=== PATIENT | female | born 1990 | race Caucasian/White ===

== ENCOUNTER 2016-10-19 20:51 | Emergency (ER) | payer OTHER ==
[2016-10-19 21:03] VITALS: BP 115/83; BMI 41.5
[2016-10-19] MEDS ORDERED: ZOFRAN TAB 4 MG PO STA (21:17)
--- NOTE | 2016-10-19 21:22 | DR.GENAD ---
HPI - PCP Primary Care Physician: TREVOR - Complaint/Symptoms Chief Complaint Doctors Comments: Patient states she is 12 weeks gestation and she has been having vomiting,nausea, with right sided pain that radiates to the upper back for the past 2-3 hours. states the pain is 10 of 10. She denies vaginal bleeding or spotting. She denies dysuria, hematuria, ana, cold, cough, fever or chills. States she is a patient of Dr. Dang. States this is her second and the first one resulted in a miscarriage at 28 weeks. she denies tobacco or alcohol usage. states she has been taking the phenergan but still nauseated when she tries to eat. She denies diarrhea. Chief Complaint:: PT STATES SHE HAS BEEN HAVING ABD PAIN THAT RADIATES TO HER BACK FOR ONE HOUR. PT DENIES ANY BLEEDING. - Nurses notes reviewed Nurses Notes Review: Yes - Source History Provided: Patient - Mode of Arrival Mode of Arrival: Stretcher - Timing Onset of Chief Complaint: 10/19/16 Came on: Suddenly - Duration Duration: Intermittent How lon Duration: Hours - Location Location: right CVA and back pain - Severity Severity: Moderate - Modifying Factors Worsens:: nothing Improves:: nothing PMH - PMH Past Medical History: Yes Past Medical History: Asthma Past Surgical History: Yes Surgical History: - Family History History of Family Medical Conditions: Yes Family Medical History: Diabetes Mellitus, [place], Hypertension - Social History Alcohol Use: None Do you use any recreational Drugs:: No Lives With: Family Lives Where: Home - infectious screening In the last 2 months have you had wt loss of >10#?: NO Have you had fever, night sweats or hemotysis?: No Have you traveled outside the country in the last 6 months?: No Isolation: Standard ROS - Review of Systems Constitutional: No Symptoms Reported, Loss of Appetite Eyes: No Symptoms Reported ENTM: No Symptoms Reported Respiratoy: No Symptoms Reported. negative: See HPI, Productive Cough, Non- Productive Cough, Moist Cough, Dry Cough, Hacking Cough, Barking Cough, Brassy Cough, Orthopnea, Short of Breath, Stridor, Wheezing, Hemoptysis, Other Cardiovascular: No Symptoms Reported. negative: See HPI, Chest Pain, Edema, Palpitations, Syncope, Cyanosis, Skin Mottling, Other Gastrointestinal/Abdominal: No Symptoms Reported, Abdominal Pain, Nausea, Vomiting. negative: See HPI, Constipation, Diarrhea, Food Intolerance, Other Genitourinary: No Symptoms Reported. negative: See HPI, Discharge, Dysuria, Frequency, Hematuria, Pain, Bleeding, Other Neurological: No Symptoms Reported Musculoskeletal: No Symptoms Reported Integumentary: No Symptoms Reported Hematologic/Lymphatic: No Symptoms Reported Endocrine: No Symptoms Reported Psychiatric: No Symptoms Reported PE - Vital Signs Vitals: Temperature 98.3 F Pulse Rate 85 Respiratory Rate 20 Blood Pressure [Left Arm] 138/88 Blood Pressure 115/83 O2 Sat by Pulse Oximetry 100 - General Limitations: No Limitations General Appearance: Alert, In No Apparent Distress - Head Head Exam: Normal Inspection, Atraumatic, Normocephalic - Eyes Eye exam: Normal Appearance, PERRL, EOMI. negative: Scleral Icterus, Conjunctival Injection, Nystagmus, Miosis, Mydrasis, Periorbital Swelling, Periorbital Tenderness, Other - ENT ENT Exam: Normal Exam, Normal Oropharynx, Normal External Ear Exam, Mucous Membranes Moist, TM's Normal Bilaterally External Ear Exam: Normal External Inspection TM/Canal Exam: Bilateral Normal Nose Exam: Normal Nose Exam Mouth Exam: Normal Inspection Throat Exam: Normal Inspection - Neck Neck Exam: Normal Inspection, Full ROM, Trachea Midline. negative: Tenderness, Meningismus, Lymphadenopathy, Thyromegaly, Other - Chest Chest Inspection: Normal Inspection, Symmetric Chest Wall Rise - Respiratory Respiratory Exam: Normal Lung Sounds Bilat Respiratory Exam: Bilateral Clear to Auscultation - Cardiovascular Cardiovascular Exam: Regular Rate, Normal Rhythm, Normal Heart Sounds - Abdominal Exam Abdominal Exam: Normal Inspection, Normal Bowel Sounds, Soft Abdominal Tenderness: negative: RUQ, RLQ, LUQ, LLQ, Epigastrium, Suprapubic, Diffuse, Mild, Moderate, Severe, Other - Extremities Extremities Exam: Normal Inspection, Full ROM, Normal Capillary Refill. negative: Tenderness, Edema, Joint Swelling, Calf Tenderness, Other - Back Back Exam: Normal Inspection, Full ROM. negative: Tenderness, (R) CVA Tenderness, (L) CVA Tenderness, Muscle Spasm, Paraspinal Tenderness, Vertebral Tenderness, Rashes, (R) Sciatic Notch Tenderness, (L) Sciatic Notch Tendern, (R ) Straight Leg Raise, (L) Straight Leg Raise, Other - Neurologic Neurological Exam: Alert, Oriented X3, CN II-XII Intact, Reflexes Normal. negative: Normal Gait (gait not tested) ROR - Labs Reviewed Laboratory Results Reviewed?: Yes (all lab results reviewed and discussed with patient) Result Diagrams: 10/19/16 21:25 10/19/16 21: Laboratory: WBC 12.0 X10^3/uL (3.6-10.0) H 10/19/16 21: RBC 4.96 X10^6/uL (3.5-5.4) 10/19/16 21: Hgb 12.7 g/dL (12.0-16.0) 10/19/16: Hct 38.4 % (36.0-47.0) 10/19/16: MCV 77.4 fL (80.0-100.0) L 10/19/16: MCH 25.6 pg (27.0-34.0) L 10/19/16: MCHC 33.0 g/dL (33.0-35.0) 10/19/16: RDW 16.2 % (11.6-16.5) 10/19/16: Plt Count 273 X10^3/uL (150.0-450.0) 10/19/16: Plt Count Comment Adequate (ADEQUATE) 10/19/16: MPV 9.2 fL (7.4-11.0) 10/19/16 21:25 Neut % 75.9 % (42.0-75.0) H 10/19/16 21: Lymph % 16.5 % (21.0-51.0) L 10/19/16 21: [place] % 5.3 % (0.0-13.0) 10/19/16 21:25 Eos % 1.9 % (0.9-2.9) 10/19/16: Baso % 0.4 % (0.2-1.0) 10/19/16: Neut # 9.1 x10^3/uL (2.2-4.8) H 10/19/16 21:25 Lymph # 2.0 X10^3/uL (1.3-2.9) 10/19/16 21:25 [place] # 0.6 x10^3/uL (0.3-0.8) 10/19/16 21:25 Eos # 0.2 x10^3/uL (0.0-0.2) 10/19/16 21:25 Baso # 0.0 X10^3/uL (0.0-0.1) 10/19/16 21:25 Absolute Nucleated RBC 0.0 /100WBC 10/19/16 21:25 Plt Morphology Comment Normal (NORMAL) 10/19/16 21:25 RBC Morphology Normal (NORMAL) 10/19/16 21:25 Sodium 137 mmol/L (136-145) 10/19/16 21:25 Corrected Sodium TNP 10/19/16 21:25 Potassium 3.8 mmol/L (3.5-5.1) 10/19/16 21:25 Chloride 103 mmol/L (98-107) 10/19/16 21:25 Carbon Dioxide 24.1 mmol/L (21-32) 10/19/16 21:25 BUN 12 mg/dL (7-18) 10/19/16 21:25 Creatinine 0.90 mg/dL (0.55-1.02) 10/19/16 21:25 Est GFR (MDRD) Af Amer > 60 (>60) 10/19/16 21:25 Est GFR (MDRD) Non-Af > 60 (>60) 10/19/16 21:25 Glucose 92 mg/dL (65-99) 10/19/16 21:25 Calcium 9.0 mg/dL (8.5-10.1) 10/19/16 21:25 Corrected Calcium 9.6 mg/dL (8.5-10.1) 10/19/16 21:25 Total Bilirubin 0.30 mg/dL (0.2-1.0) 10/19/16 21:25 AST 21 Units/L (15-37) 10/19/16 21:25 ALT 33 Units/L (12-78) 10/19/16 21:25 Alkaline Phosphatase 92 Units/L (46-116) 10/19/16 21:25 Total Protein 7.5 g/dL (6.4-8.2) 10/19/16 21:25 Albumin 3.3 g/dL (3.4-5.0) L 10/19/16 21:25 Globulin 4.2 g/dL (2.5-4.5) 10/19/16 21:25 Albumin/Globulin Ratio 0.8 Ratio (1.1-2.1) L 10/19/16 21:25 HCG, Quant [id number] mIU/mL (0-6) H 10/19/16 21:25 - Other Results Comments: Patient unable to collect urine. States she missed the cup and is not able to go to urine again and wants to followup with her local doctor because she states she feels good presently and is not having any problems or pain. - Diagnosis Discharge Problem: Abdominal pain during Qualifiers: Weeks of gestation: 12 weeks Qualified Code(s): Z3A.12 - 12 weeks gestation of - Discharge Plan Disposition: 01 HOME, SELF-CARE Condition: Stable - Follow ups/Referrals Follow ups/Referrals: BIJAN MURRAY [Primary Care Provider] - 3 days - Instructions Instructions: , First Trimester of , [id number], Abdominal Pain During
[2016-10-19 21:42] LABS: BASOPHILS % (AUTO) 0.4 % (0.2-1.0); EOSINOPHILS # (AUTO) 0.2 x10^3/uL (0.0-0.2); EOSINOPHILS % (AUTO) 1.9 % (0.9-2.9); HEMATOCRIT 38.4 % (36.0-47.0); HEMOGLOBIN 12.7 g/dL (12.0-16.0); LYMPHOCYTES % (AUTO) 16.5 % (21.0-51.0); MEAN CORPUSCULAR HEMOGLOBIN 25.6 pg (27.0-34.0); MEAN CORPUSCULAR VOLUME 77.4 fL (80.0-100.0); MEAN PLATELET VOLUME 9.2 fL (7.4-11.0); MONOCYTES # (AUTO) 0.6 x10^3/uL (0.3-0.8); MONOCYTES % (AUTO) 5.3 % (0.0-13.0); NEUTROPHILS # (AUTO) 9.1 x10^3/uL (2.2-4.8); NEUTROPHILS % (AUTO) 75.9 % (42.0-75.0); PLATELET COUNT 273 X10^3/uL (150.0-450.0); RED BLOOD COUNT 4.96 X10^6/uL (3.5-5.4); RED CELL DISTRIBUTION WIDTH 16.2 % (11.6-16.5)
[2016-10-19 21:44] LABS: ALANINE AMINOTRANSFERASE 33 Units/L (12-78); ALBUMIN 3.3 g/dL (3.4-5.0); ALKALINE PHOSPHATASE 92 Units/L (46-116); ASPARTATE AMINO TRANSFERASE 21 Units/L (15-37); BLOOD UREA NITROGEN 12 mg/dL (7-18); CARBON DIOXIDE 24.1 mmol/L (21-32); CHLORIDE 103 mmol/L (98-107); COR CA(FOR HYPOALB) 9.6 mg/dL (8.5-10.1); GLUCOSE 92 mg/dL (65-99); SODIUM 137 mmol/L (136-145); TOTAL PROTEIN 7.5 g/dL (6.4-8.2); eGFR BLACK RACES > 60 (>60); eGFR NON BLACK RACES > 60 (>60)
[2016-10-19 22:02] LABS: PLATELET MORPHOLOGY COMMENT NORMAL (NORMAL)
[2016-10-19 22:14] LABS: HCG,QUANTITATIVE 176129 mIU/mL (0-6)
[2016-10-19] MEDS ORDERED: ZOFRAN TAB 4 MG ONE (22:59)
== END 2016-10-19 23:26 | disposition home or self-care (01) ==
LOC: ER 20:51
DX: R10.84 Generalized abdominal pain (principal); Z3A.12 12 weeks gestation of pregnancy
CPT/HCPCS: 36415; 80053; 84702; 85025; 99282; 99283; 99284; S0181

== ENCOUNTER 2016-11-22 11:41 | Emergency (ER) | payer OTHER ==
[2016-11-22 11:46] VITALS: BP 144/80; BMI 53.4
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
[2016-11-22] MEDS ORDERED: TYLENOL 500 MG TAB EXTRA STRENGTH ONE (12:39)
[2016-11-22] MEDS ORDERED: TYLENOL 500 MG TAB EXTRA STRENGTH PO PRN (12:40)
[2016-11-22 13:26] LABS: BILIRUBIN,URINE NEGATIVE (NEGATIVE); BLOOD/HEMOGLOBIN,URINE 1+ (NEGATIVE); GLUCOSE, URINE NEGATIVE (NEGATIVE); KETONES,URINE 1+ (NEGATIVE); LEUKOCYTE ESTERASE ,URINE 1+ (NEGATIVE); NITRITES,URINE NEGATIVE (NEGATIVE); PROTEIN,URINE 2+ (NEGATIVE); UROBILINOGEN,URINE 1+ (NORMAL)
[2016-11-22 13:35] LABS: APPEARANCE,URINE HAZY (CLEAR); BACTERIA,URINE 3+ /HPF (NEGATIVE); COLOR,URINE YELLOW (YELLOW); RBC,URINE 0-2 /HPF (NEGATIVE); SQUAMOUS EPITHELIAL CELL,UR FEW /HPF (NEGATIVE)
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
[2016-11-22 13:45] LABS: BASOPHILS # (AUTO) 0.1 X10^3/uL (0.0-0.1); BASOPHILS % (AUTO) 0.8 % (0.2-1.0); EOSINOPHILS # (AUTO) 0.2 x10^3/uL (0.0-0.2); EOSINOPHILS % (AUTO) 1.7 % (0.9-2.9); HEMATOCRIT 38.5 % (36.0-47.0); LYMPHOCYTES # (AUTO) 1.8 X10^3/uL (1.3-2.9); LYMPHOCYTES % (AUTO) 18.3 % (21.0-51.0); MEAN CORPUSCULAR HEMOGLOBIN 25.9 pg (27.0-34.0); MEAN CORPUSCULAR HGB CONC 33.7 g/dL (33.0-35.0); MEAN CORPUSCULAR VOLUME 76.9 fL (80.0-100.0); MEAN PLATELET VOLUME 9.4 fL (7.4-11.0); MONOCYTES # (AUTO) 0.5 x10^3/uL (0.3-0.8); MONOCYTES % (AUTO) 5.4 % (0.0-13.0); NEUTROPHILS # (AUTO) 7.3 x10^3/uL (2.2-4.8); NEUTROPHILS % (AUTO) 73.8 % (42.0-75.0); PLATELET COUNT 252 X10^3/uL (150.0-450.0); RED BLOOD COUNT 5.01 X10^6/uL (3.5-5.4); RED CELL DISTRIBUTION WIDTH 15.6 % (11.6-16.5); WHITE BLOOD COUNT 9.8 X10^3/uL (3.6-10.0)
[2016-11-22 13:55] LABS: ALANINE AMINOTRANSFERASE 27 Units/L (12-78); ALBUMIN 2.9 g/dL (3.4-5.0); ALKALINE PHOSPHATASE 89 Units/L (46-116); ASPARTATE AMINO TRANSFERASE 16 Units/L (15-37); BLOOD UREA NITROGEN 7 mg/dL (7-18); CALCIUM 9.2 mg/dL (8.5-10.1); CARBON DIOXIDE 23.3 mmol/L (21-32); CHLORIDE 105 mmol/L (98-107); COR CA(FOR HYPOALB) 10.1 mg/dL (8.5-10.1); CREATININE 0.66 mg/dL (0.55-1.02); GLUCOSE 88 mg/dL (65-99); SODIUM 137 mmol/L (136-145); TOTAL PROTEIN 7.5 g/dL (6.4-8.2); eGFR BLACK RACES > 60 (>60); eGFR NON BLACK RACES > 60 (>60)
[2016-11-22 13:57] LABS: PLATELET MORPHOLOGY COMMENT NORMAL (NORMAL)
[2016-11-22 13:58] LABS: HYPOCHROMASIA SLIGHT
[2016-11-22 14:22] LABS: HCG,QUANTITATIVE 55681 mIU/mL (0-6)
== END 2016-11-22 14:51 | disposition home or self-care (01) ==
LOC: ER 11:55
DX: M54.5 Low back pain (principal); M25.561 Pain in right knee; Z3A.15 15 weeks gestation of pregnancy
CPT/HCPCS: 36415; 76815; 80053; 81001; 84702; 85025; 87086; 99283; 99284